=== PATIENT | female | born 1980 ===

== ENCOUNTER 2021-01-27 06:02 | Inpatient (IN) | payer OTHER ==
[2021-01-27] MEDS ORDERED: LACTATED RINGERS 1,000 ML IV SCH (07:00)
[2021-01-27] MEDS ORDERED: OXYTOCIN DRIP 30 UNITS/500 ML BAG IV SCH (07:00)
[2021-01-27] MEDS ORDERED: BUTORPHANOL 2 MG/1 ML INJ ONE ×2 (07:10→09:59)
[2021-01-27] MEDS ORDERED: AMPICILLIN/NS 2 GM/100 ML 2 GM/100 ML BAG IV SCH (07:30)
[2021-01-27] MEDS ORDERED: TERBUTALINE 1 MG/1 ML INJ SUB-Q PRN (07:30)
[2021-01-27] MEDS ORDERED: LIDOCAINE (2%) 20 MG/1 ML VIAL 20 ML MDV INFILTRATI SCH (07:30)
[2021-01-27] MEDS ORDERED: MINERAL OIL 30 ML ORAL LIQD PO PRN (07:30)
[2021-01-27] MEDS ORDERED: fentaNYL 100 MCG/2 ML INJ IV PRN (07:30)
[2021-01-27] MEDS ORDERED: ePHEDrine SULFATE 50 MG/1 ML INJ IV PRN (07:30)
[2021-01-27] MEDS ORDERED: ONDANSETRON 4 MG/2 ML INJ IV PRN ×2 (07:30→12:43)
[2021-01-27 07:41] LABS: Mean Corpuscular HGB Conc 34 % (30-34); Mean Corpuscular Volume 94 fl (79-97); Platelet Count 271 K/mm3 (140-440); Red Blood Count 4.06 M/mm3 (3.65-5.03); Red Cell Distribution Width 14.4 % (13.2-15.2)
[2021-01-27 07:53] LABS: Uric Acid 4.7 mg/dL (3.5-7.6)
[2021-01-27 08:08] LABS: Alanine Aminotransferase < 5 units/L (7-56)
[2021-01-27] MEDS ORDERED: BUTORPHANOL 2 MG/1 ML INJ IV PRN (09:00)
[2021-01-27] MEDS ORDERED: miSOPROStol 200 MCG TAB PR SCH (09:00)
[2021-01-27] MEDS ORDERED: miSOPROStol 200 MCG TAB ONE ×2 (09:50→09:54)
[2021-01-27] MEDS ORDERED: OXYTOCIN 10 UNIT/1 ML INJ ONE (09:53)
[2021-01-27] MEDS ORDERED: METHYLERGONOVINE MALEATE 0.2 MG/ML VIAL IM ONE (09:54)
[2021-01-27] MEDS ORDERED: OXYTOCIN 10 UNIT/1 ML INJ IM ONE (10:00)
--- NOTE | 2021-01-27 11:03 | Procedure Note ---
Date of procedure: 01/27/21 Pre-op diagnosis: 3rd degree laceration Post-op diagnosis: same Procedure: performed by FRANCO Moore. See separate procedure note. Operation performed: 3rd degree laceration repair Called in to evaluate third-degree laceration after spontaneous vaginal delivery complicated by shoulder dystocia and mediolateral episiotomy. Patient noted to have a third-degree laceration without evidence of 4th degree laceration after rectovaginal exam. 3-0 Vicryl was used in order to reapproximate the muscle fibers of the third degree laceration. Next 2-0 Vicryl was used in order to reapproximate a right inferiolateral vaginal wall laceration as well as a sec ond-degree laceration. Hemostasis was noted at the end of the procedure. Anesthesia: local Surgeon: ARELI BUCKLEY JR Asbestos Surveyor: MARIE STANFORD Estimated blood loss: other (500, including the ) Urine output: 200 Pathology: none Condition: stable Disposition: floor
--- NOTE | 2021-01-27 12:24 | Procedure Note ---
OB Delivery Note - Delivery Date of Delivery: 01/27/21 Surgeon: MARIE STANFORD Estimated blood loss: 500cc - Vaginal Delivery presentation: vertex Delivery position: OA Intrapartum events: shoulder dystocia Delivery induction: none Delivery augmentation: rupture of membranes Delivery monitor: external FHT, external uterine Route of delivery: Delivery placenta: spontaneous Delivery cord: 3 umbilical vessels Episiotomy: midline Delivery laceration: 3rd degree, other (right labial tear) Delivery repair: chromic Anesthesia: intravenous Delivery comments: Called to for delivery. SVE 10/100%/+1. of a living viable female infant complicated by shoulder dystocia and poor maternal pushing effort. Turtle sign was noted after delivery of infant's head. Pt was immediately placed in McRobert's position. Pt was encouraged to push while standard traction was applied to 's head. After an unsuccessful attempt to deliver the . A shoulder dystocia was called and nurses were advised to obtain a doctor and apply s/p pressure. Other maneuvers listed in order were used in an attempt to r esolve the shoulder dystocia were suprapubic pressure, delivery of posterior arm, and gillette screw. An episiotomy was performed and pt sustained a 3rd degree laceration and a right labial tear. The appeared stunned at delivery. After infant's cord was clamped x 2 and cut, the was immediately given to the IVAN nurse for an assess. 1,8,8. Spontaneous delivery of an intact placenta with 3CV. FF@U2 with fundal massage and IM Pitocin. Afterwards, Fundus became boggy with vag bleeding noted. A urinary cath was placed and approx 200cc of urine was expelled. Cytotec 800mcg FL was also given and homeostasis was maintained. was taken to NICU for further monitoring by IVAN nurse. Mom was left in stable condition with L&D nurse. EBL 500cc. FW 4195 Gms; Vag repair was repaired by Dr Carranza. . - Infant A at 1 minute: 1 at 5 minutes: 8 Gender: Female (FW [id number])
--- NOTE | 2021-01-27 12:37 | History and Physical Report ---
History of Present Illness Date of examination: 01/27/21 Date of admission: 01/27/21 06:58 Chief complaint: Pt with c/o contractions History of present illness: 40 y/o female presents to ob triage at 39.3 wks with c/o uc times several hours. Pt denies LOF. She admits to a small amt of vag bleeding and adq FM. Pt initiated her pnc at 6 5/7 wks at [facility] . Her hx includes GDM with last 2 preg, AMA, obesity, low platelets, LGA by [facility] at 20 wks, abnormal 1hr gtt with a normal 3 hr gtt, and pos HPV. Pt was followed by [facility] with this preg. She is a former smoker. Pt has a hx of PTD with IUFD at 20 wks with multiple deformities. 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: other (HPV) Family/Genetic History: none Social history: single, full code, other (FORMER SMOKER) - Obstetrical History Expected Date of Delivery: 01/31/21 Actual Gestation: 39 Week(s) 3 Day(s) : 5 Para: 3 Hx # Term Pregnancies: 2 Number of Pregnancies: 1 Spontaneous Abortions: 1 Number of Living Children: 2 Medications and Allergies Allergies Allergy/AdvReac Type Severity Reaction Status Date / Time No Known Allergies Allergy Verified 09/26/14 20:20 Home Medications Medication Instructions Recorded Confirmed Last Taken Type Cephalexin [Keflex] 500 mg PO Q12HR #10 capsule 09/27/14 Unknown Rx miSOPROStoL [Cytotec] 400 mcg PO Q4H #3 tablet 09/27/14 Unknown Rx Active Meds: Active Medications Butorphanol Tartrate (Butorphanol 2 Mg/1 Ml Inj) 2 mg IV Q2H PRN PRN Reason: Labor Pain Ephedrine Sulfate (Ephedrine Sulfate 50 Mg/1 Ml Inj) 10 mg IV Q2M PRN PRN Reason: Hypotension Fentanyl (Fentanyl 100 Mcg/2 Ml Inj) 100 mcg IV Q2H PRN PRN Reason: Pain,Severe (7-10) LABOR PAIN Lactated Ringer's (Lactated Ringers) 1,000 mls @ 125 mls/hr IV DIRECT MILDRED Last Admin: 01/27/21 07:29 Dose: 125 mls/hr Documented by: Oxytocin/Sodium Chloride (Pitocin/Ns 30 Unit/500ml) 30 units in 500 mls @ 40 mls/hr IV TITR MILDRED; Protocol Lidocaine (Lidocaine (2%) 20 Mg/1 Ml Vial 20 Ml Mdv) 20 ml INFILTRATI ONCE MILDRED Stop: 01/28/21 07:29 Last Admin: 01/27/21 11:03 Dose: 20 ml Documented by: Mineral Oil (Mineral Oil 30 Ml Oral Liqd) 30 ml PO QHS PRN PRN Reason: Constipation Last Admin: 01/27/21 11:03 Dose: 30 ml Documented by: Ondansetron HCl (Ondansetron 4 Mg/2 Ml Inj) 4 mg IV Q8H PRN PRN Reason: Nausea And Vomiting Terbutaline Sulfate (Terbutaline 1 Mg/1 Ml Inj) 0.25 mg SUB-Q ONCE PRN PRN Reason: Hyperstimulation/Hypertonicity Review of Systems All systems: negative Eyes: deferred Ears, nose, mouth and throat: deferred Breasts: normal Genitourinary: normal appearance Rectal Exam: hemorrhoids - Vital Signs Vital signs: Vital Signs Pulse Pulse Ox 93 H 100 01/27/21 06:18 01/27/21 06:18 Temp Pulse Resp BP Pulse Ox 98.5 F 87 16 98/64 99 01/27/21 12:19 01/27/21 12:19 01/27/21 12:19 01/27/21 12:19 01/27/21 12:19 - Physical Exam Breasts: Positive: normal Abdomen: Positive: normal appearance, soft, normal bowel sounds Genitourinary (Female): Positive: normal external genitalia, normal perenium Vulva: both: normal Vagina: Positive: normal moisture Uterus: Positive: enlarged, normal contour, other (GRAVID) Adnexa: both: normal Anus/Rectum: Positive: normal perianal skin Extremities: Positive: normal - Obstetrical FHR: auscultation normal, category 1 Uterine Contraction Monitor Mode: External Cervical Dilatation: 10 Cervical Effacement Percentage: 100 station: +1 Uterine Contraction Frequency (min): q2-5 Uterine Contraction Pattern: Regular Uterine Tone Measurement Phase: Resting Uterine Contraction Intensity: Strong/Firm Results Result Diagrams: 01/27/21 07:00 01/27/21 07:00 Abnormal lab results 01/27/21 01/27/21 Range/Units 07:00 07:00 WBC 11.2 H (4.5-11.0) K/mm3 Creatinine 0.5 L (0.6-1.2) mg/dL ALT < 5 L (7-56) units/L Lactate Dehydrogenase 202 H (91-180) units/L All other labs normal. Assessment and Plan A: IUP@ 39.3 wks AMA, LGA, obesity GBS unknown P: Admit to L&D Continuous monitoring GBS prophylaxis Alert IVAN nurse Anticipate - Patient Problems (1) LGA (large for gestational age) fetus Current Visit: Yes Status: Acute (2) Obesity Current Visit: Yes Status: Acute (3) AMA (advanced maternal age) multigravida 35+ Current Visit: Yes Status: Acute
[2021-01-27] MEDS ORDERED: PROMETHAZINE 25 MG RECT SUPP PR PRN (12:43)
[2021-01-27] MEDS ORDERED: diphenhydrAMINE 25 MG CAP PO PRN (12:43)
[2021-01-27] MEDS ORDERED: PROMETHAZINE 25 MG TAB PO PRN (12:43)
[2021-01-27] MEDS ORDERED: LANOLIN/ZINC/DIMETHICONE (LANSINOH) 7 GM TP PRN (12:43)
[2021-01-27] MEDS ORDERED: MAGNESIUM HYDROXIDE (MOM) ORAL LIQD UDC PO PRN (12:43)
[2021-01-27] MEDS: WITCH HAZEL/ GLYCERIN PAD TP PRN (14:18)
[2021-01-27] MEDS: IBUPROFEN 600 MG TAB PO SCH ×2 (14:18→21:52)
[2021-01-27] MEDS: DOCUSATE SODIUM 100 MG CAP PO SCH (21:52)
[2021-01-28 00:53] LABS: Hematocrit 26.4 % (30.3-42.9)
[2021-01-28] MEDS: IBUPROFEN 600 MG TAB PO SCH ×4 (05:28→21:40)
--- NOTE | 2021-01-28 11:14 | Progress Note ---
Assessment and Plan continue routine PP care d/c to home tomorrow Tarik Orantes MD Subjective - Subjective Date of service: 01/28/21 Interval history: PPD#1 tolerating PO lochia mild no complaints at bedside baby doing well Patient reports: appetite normal, voiding normally, pain well controlled, ambulating normally : doing well Objective - Vital Signs Latest vital signs: Vital Signs Temp Pulse Resp BP BP Pulse Ox 01/28/21 08:53 98.0 F 85 18 107/62 98 01/27/21 21:51 98.5 F 100 H 18 123/76 100 01/27/21 16:27 98.5 F 102 H 18 108/67 98 01/27/21 12:19 98.5 F 87 16 98/64 99 01/27/21 11:36 97 H 100/61 Intake and Output 01/27/21 01/28/21 01/28/21 23:59 07:59 15:59 Output Total 500 Balance -500 Output: Urine 500 Void 500 Other: Total, Output Amount 500 # Voids Void 1 - Exam Breasts: Present: normal Abdomen: Present: normal appearance, normal bowel sounds Uterus: Present: normal, fundal height at umbilicus Extremities: Present: normal Deep Tendon Reflex Grade: Normal +2 - Labs Labs: Abnormal lab results 01/27/21 01/28/21 Range/Units 06:57 00:39 Hgb 9.0 L D (10.1-14.3) gm/dl Hct 26.4 L D (30.3-42.9) % Coronavirus (PCR) Positive A (Negative)
[2021-01-28] MEDS: DOCUSATE SODIUM 100 MG CAP PO SCH ×2 (15:49→21:40)
[2021-01-28] MEDS: WITCH HAZEL/ GLYCERIN PAD TP PRN (21:46)
[2021-01-29] MEDS: IBUPROFEN 600 MG TAB PO SCH ×2 (06:37→12:05)
[2021-01-29 08:22] VITALS: BP 108/60
[2021-01-29] MEDS: DOCUSATE SODIUM 100 MG CAP PO SCH (09:44)
--- NOTE | 2021-01-29 11:35 | Progress Note ---
Assessment and Plan A: day 2 S/P complicated by shoulder dystocia and 3rd degree perineal laceration. Anemia. Asymptomatic coronavirus positive. P: Discharge patient home today. Discharge OK'd by . Discussed with patient discharge instructions and warning signs. Advised patient to avoid intercourse, lifting, housework. Advised patient to continue taking her vitamins, iron supplements, and stool softeners at home. Advised patient to follow up at [facility] in 2-3 days for BP check. Patient to otherwise quarantine at home for 14 days. Patient voiced understanding of all instructions. Subjective - Subjective Date of service: 01/29/21 Principal diagnosis: day 2 S/P Interval history: Coronavirus positive. Patient is asymtomatic. Patient denies headache, cough, shortness of breath, chest pain, or N/V. Patient requests to be discharged home today. She was advised to self quarantine at home for 14 days. Patient reports: appetite normal, voiding normally, pain well controlled, flatus, ambulating normally, no dizzy ambulation, no nauseated : doing well, nursing well, bottle feeding Objective - Vital Signs Latest vital signs: Vital Signs Temp Pulse Resp BP BP Pulse Ox 01/29/21 08:00 97.9 F 78 18 108/60 99 01/29/21 06:37 14 01/29/21 01:54 98.0 F 82 20 111/68 100 01/28/21 21:40 14 01/28/21 16:05 98.6 F 85 18 110/72 98 Intake and Output 01/28/21 01/29/21 01/29/21 23:59 07:59 15:59 Intake Total 360 360 Balance 360 360 Intake: Oral 360 Intake, Free Water 360 Other: Total, Intake Amount 360 # Voids Void 2 1 - Exam Cardiovascular: Present: Regular rate, No murmurs Lungs: Present: Clear to auscultation Abdomen: Present: normal appearance, soft. Absent: distention, tenderness, guarding, rigidity Uterus: Present: normal, firm, fundal height below umbilicus. Absent: bogginess, tenderness Extremities: Present: normal. Absent: tenderness, edema
--- NOTE | 2021-01-29 11:41 | Discharge Summary ---
Providers - Providers Date of Admission: 01/27/21 06:58 Date of discharge: 01/29/21 Attending physician: MAURIZIO REICH Primary care physician: MAURIZIO REICH Hospitalization Reason for admission: active labor Delivery: Episiotomy: mediolateral Laceration: 3rd degree Other procedures: none complications: other (asymptomatic coronavirus positive) Discharge diagnosis: IUP at term delivered [place] baby: female Pertinent studies: Labs Hospital course: Stable hospital course Condition at discharge: Good Disposition: DC-01 TO HOME OR SELFCARE - Discharge Diagnoses (1) Term delivered Status: Acute (2) Anemia Status: Acute Plan - Discharge Medications Prescriptions: Ibuprofen [Motrin] 600 mg PO Q8H PRN #30 tablet PRN Reason: Pain - Provider Discharge Summary Activity: routine, no sex for 6 weeks, no heavy lifting 4 weeks, no strenuous exercise Diet: routine Instructions: routine Additional instructions: Continue taking your vitamins, iron supplements, and stool softeners at home. Follow up at [facility] in 2-3 days for a BP check. Otherwise self quarantine at home for 14 days. Call your doctor immediately for: * Fever > 100.5 * Heavy vaginal bleeding ( >1 pad per hour) * Severe persistent headache * Shortness of breath * Reddened, hot, painful area to leg or breast - Follow up plan Follow up: MAURIZIO REICH MD [Primary Care Provider] - 48 Hours Forms: [facility] Discharge Summary
== END 2021-01-29 15:45 | disposition home or self-care (01) | DRG 768 ==
LOC: TRG 06:02 → APU 06:08 → TRG 06:58 → APU 06:58 → LD 08:58 → OB 12:31
PROVIDERS: ADMIT Obstetrics & Gynecology; ATTEND Obstetrics & Gynecology
PROC: 10E0XZZ Delivery of Products of Conception, External Approach (ICD-10-PCS; principal; 2021-01-27)
PROC: 0DQR0ZZ Repair Anal Sphincter, Open Approach (ICD-10-PCS; 2021-01-27)
PROC: 0W8NXZZ Division of Female Perineum, External Approach (ICD-10-PCS; 2021-01-27)
DX: O66.0 Obstructed labor due to shoulder dystocia (principal); Z37.0 Single live birth; U07.1 COVID-19; O98.52 Other viral diseases complicating childbirth; O70.20 Third degree perineal laceration during delivery, unspecified; Z3A.39 39 weeks gestation of pregnancy; Z87.891 Personal history of nicotine dependence; O99.214 Obesity complicating childbirth; O36.63X0 Maternal care for excessive fetal growth, third trimester, not applicable or unspecified
CPT/HCPCS: 36415; 59025; 82565; 83615; 84450; 84460; 84550; 85014; 85018; 85027; 86592; 86850; 86900; 86901; G0378; J0290; J0595; J2590; J7120; U0003